=== PATIENT | female | born 1970 | race African-American/Black ===

== ENCOUNTER 2020-09-04 01:06 | Inpatient (IN) | payer OTHER, MEDICAID ==
[~2020-09-04] VITALS: Ht 165.1 cm; Wt 94.8 kg
[2020-09-04] MEDS ORDERED: NITROGLYCERIN 0.4MG TABLET SL SL ONE (01:15)
[2020-09-04] MEDS ORDERED: FUROSEMIDE 100MG/10ML VIAL IVP ONE (01:15)
[2020-09-04] MEDS ORDERED: MORPHINE SULFATE 4 MG/ML CPJ (NOT FOR IM USE) IV ONE (01:15)
[2020-09-04] MEDS ORDERED: NITROGLYCERIN 50MG PREMIX 250 ML IV ONE (01:15)
[2020-09-04 01:39] LABS: BASOPHILS % 0.4 % (0.0-2.0); EOSINOPHILS % 1.5 % (0.0-5.0); HEMATOCRIT. 39.9 % (36.0-48.0); HEMOGLOBIN. 13.2 g/dL (12.0-16.0); LYMPHOCYTES % 47.5 % (20.0-50.0); MEAN CORPUSCULAR HEMOGLOBIN 29.5 pg (28.0-32.0); MEAN CORPUSCULAR VOLUME 89.1 fL (81.0-99.0); MONOCYTES % 7.8 % (2.0-8.0); NEUTROPHILS % 42.8 % (40.0-76.0); PLATELET 262 x1000/uL (130-400); RED BLOOD CELL COUNT 4.48 mill/uL (4.2-5.4)
[2020-09-04] MEDS ORDERED: AZITHROMYCIN 500 MG in DEXT 5% WATER 250 ML IV ONE (01:45)
[2020-09-04] MEDS ORDERED: PIPERACILLIN/TAZ 3.375G PREMIX 50 ML IV ONE (01:45)
[2020-09-04] MEDS ORDERED: VANCOMYCIN 1 G PREMIX 200 ML IV ONE (01:45)
[2020-09-04 01:49] LABS: CHLORIDE 103 mEq/L (98-107)
[2020-09-04] MEDS ORDERED: POTASSIUM CHLORIDE INJ 40 MEQ in DEXT 5% WATER 250 ML IV ONE (03:30)
[2020-09-04] MEDS ORDERED: ONDANSETRON HCL 4MG/2ML INJ IV PRN (08:30)
[2020-09-04] MEDS ORDERED: ACETAMINOPHEN 325MG TABLET PO PRN (08:30)
[2020-09-04] MEDS: FUROSEMIDE 40MG/4ML VIAL IVP SCH ×2 (10:00→17:20)
[2020-09-04] MEDS: LOSARTAN POTASSIUM 100 MG TABLET PO SCH (10:00)
[2020-09-04] MEDS: CARVEDILOL 6.25 MG TABLET PO SCH (10:01)
[2020-09-04] MEDS ORDERED: POTASSIUM CHLORIDE 20MEQ TABLET SR PO NR (10:45)
[2020-09-04] MEDS: ENOXAPARIN 30MG/0.3ML SYR SUBCUT SCH (11:45)
[2020-09-04 22:00] VITALS: BP_SYST 142; BP_SYST 152; BP_SYST 161; BP_DIAS 101; BP_DIAS 83; BP_DIAS 96
[2020-09-05] VITALS (7 sets, daily range): BP systolic 102–150; BP diastolic 70–98
[2020-09-05] MEDS ORDERED: CARV25TA47 MT (00:57)
[2020-09-05] MEDS ORDERED: AMLO10TA80 MT (00:58)
[2020-09-05] MEDS ORDERED: LISI10TA26 MT (00:59)
[2020-09-05] MEDS ORDERED: CHLO25TA2 MT (01:00)
[2020-09-05 06:31] LABS: BASOPHILS % 0.2 % (0.0-2.0); EOSINOPHILS % 0.8 % (0.0-5.0); HEMATOCRIT. 37.4 % (36.0-48.0); HEMOGLOBIN. 12.3 g/dL (12.0-16.0); LYMPHOCYTES % 24.1 % (20.0-50.0); MEAN CORPUSCULAR HEMOGLOBIN 29.6 pg (28.0-32.0); MEAN CORPUSCULAR VOLUME 89.9 fL (81.0-99.0); MEAN PLATELET VOLUME 11.4 fl (7.4-10.4); MONOCYTES % 10.2 % (2.0-8.0); NEUTROPHILS % 64.7 % (40.0-76.0); PLATELET 221 x1000/uL (130-400); RED BLOOD CELL COUNT 4.16 mill/uL (4.2-5.4); RED CELL DISTRIBUTION WIDTH 14.3 % (11.6-14.6)
[2020-09-05 07:38] LABS: CHLORIDE 103 mEq/L (98-107)
[2020-09-05] MEDS: FUROSEMIDE 40MG/4ML VIAL IVP SCH ×2 (09:00→18:10)
[2020-09-05] MEDS: CARVEDILOL 6.25 MG TABLET PO SCH ×2 (09:30→20:52)
[2020-09-05] MEDS: LOSARTAN POTASSIUM 100 MG TABLET PO SCH (09:30)
[2020-09-05] MEDS: ENOXAPARIN 30MG/0.3ML SYR SUBCUT SCH ×2 (09:31→20:52)
[2020-09-05] MEDS ORDERED: POTASSIUM CHLORIDE 20MEQ TABLET SR PO SCH (13:15)
[2020-09-05 14:03] LABS: T4 FREE 0.92 ng/dL (0.76-1.46)
[2020-09-05 19:11] LABS: CLARITY URINE CLEAR (CLEAR); COLOR URINE YELLOW (YELLOW); KETONES URINE NEGATIVE (NEGATIVE); LEUKOCYTE ESTERASE URINE NEGATIVE (NEGATIVE); NITRITE URINE NEGATIVE (NEGATIVE); OCCULT BLOOD URINE NEGATIVE (NEGATIVE); PH URINE 5.5 (4.5-8.0); PROTEIN URINE NEGATIVE (NEGATIVE); SPECIFIC GRAVITY URINE 1.012 (1.005-1.030); UROBILINOGEN URINE 0.2 E.U./dL (0.2-1.0)
== END 2020-09-05 21:05 | disposition short-term general hospital (02) | DRG 189 ==
LOC: ER 01:06 → 6WST 01:44 → CANRESERV 08:07 → ENRESERV 08:07 → EDBEDREQSVC 09:06 → ENRESERV 20:11
PROVIDERS: ADMIT Internal Medicine; ATTEND Internal Medicine
PROC: 5A09357 Assistance with Respiratory Ventilation, Less than 24 Consecutive Hours, Continuous Positive Airway Pressure (ICD-10-PCS; principal; 2020-09-04)
DX: J96.00 Acute respiratory failure, unspecified whether with hypoxia or hypercapnia (principal); E66.9 Obesity, unspecified; I50.9 Heart failure, unspecified; I16.0 Hypertensive urgency; I11.0 Hypertensive heart disease with heart failure; J45.909 Unspecified asthma, uncomplicated; Z20.822 Contact with and (suspected) exposure to COVID-19; E87.6 Hypokalemia; E78.5 Hyperlipidemia, unspecified; I25.2 Old myocardial infarction; Z68.34 Body mass index [BMI] 34.0-34.9, adult; Z88.0 Allergy status to penicillin; Z71.3 Dietary counseling and surveillance; Z79.899 Other long term (current) drug therapy
CPT/HCPCS: 36415; 71045; 80048; 80053; 80061; 81003; 83036; 83605; 83735; 83880; 84132; 84439; 84443; 84484; 85025; 85379; 87426; 93005; 93306; 93970; 99291; J0456; J1650; J1940; J2270; J2405; J2543; J3480; J3490; J7060

== ENCOUNTER 2021-10-26 00:42 | Emergency (ER) | payer BC, MEDICAID ==
[~2021-10-26] VITALS: Ht 170.2 cm; Wt 77.0 kg
[~2021-10-26 00:42] MED LIST: AMLO10TA80 MT; CARV25TA47 MT; CHLO25TA2 MT; LISI10TA26 PO
[2021-10-26 01:26] LABS: HEMATOCRIT 32.9 % (36.0-48.0); HEMOGLOBIN 10.7 g/dL (12.0-16.0); MEAN CORPUSCULAR HEMOGLOBIN 28.6 pg (28.0-32.0); MEAN CORPUSCULAR VOLUME 87.9 fL (81.0-99.0); PLATELET 249 x1000/uL (130-400); RED BLOOD CELL COUNT 3.74 mill/uL (4.2-5.4); RED CELL DISTRIBUTION WIDTH 13.3 % (11.6-14.6)
[2021-10-26] MEDS ORDERED: TRANEXAMIC ACID 1,000 MG/10 ML IV ONE (01:30)
[2021-10-26 01:33] LABS: CHLORIDE 104 mEq/L (98-107)
[2021-10-26 03:00] VITALS: BP 118/74
[2021-11-15] MEDS ORDERED: FERR325T6 MT (10:12)
[2021-11-15] MEDS ORDERED: SENN-257 MT (10:12)
== END 2021-10-26 04:37 | disposition home or self-care (01) ==
LOC: ER 00:42
DX: R04.0 Epistaxis (principal); R53.1 Weakness; R03.0 Elevated blood-pressure reading, without diagnosis of hypertension; I50.9 Heart failure, unspecified
CPT/HCPCS: 30901; 36415; 80053; 85027; 86850; 86900; 99283; 99284

== ENCOUNTER 2021-10-28 08:15 | Emergency (ER) | payer BC, MEDICAID ==
[~2021-10-28] VITALS: Ht 160 cm; Wt 78.0 kg
[~2021-10-28 08:15] MED LIST changes: +LISI10TA26 MT; -LISI10TA26 PO
[2021-10-28 13:23] LABS: BASOPHILS % 0.4 % (0.0-2.0); HEMATOCRIT. 28.4 % (36.0-48.0); HEMOGLOBIN. 9.5 g/dL (12.0-16.0); LYMPHOCYTES % 13.7 % (20.0-50.0); MEAN CORPUSCULAR HEMOGLOBIN 29.1 pg (28.0-32.0); MEAN CORPUSCULAR VOLUME 87.3 fL (81.0-99.0); MEAN PLATELET VOLUME 10.3 fl (7.4-10.4); MONOCYTES % 9.5 % (2.0-8.0); NEUTROPHILS % 76.4 % (40.0-76.0); PLATELET 237 x1000/uL (130-400); RED BLOOD CELL COUNT 3.26 mill/uL (4.2-5.4); RED CELL DISTRIBUTION WIDTH 13.4 % (11.6-14.6)
[2021-10-28 13:31] LABS: CHLORIDE 101 mEq/L (98-107)
[2021-10-28 13:34] LABS: INR 1.1; PARTIAL THROMBOPLASTIN TIME 27.6 sec (23.4-31.0); PROTHROMBIN TIME 11.3 sec (9.6-11.0)
[2021-10-28] MEDS: CLINDAMYCIN HCL 150MG CAPSULE PO NR ×3 (17:00→22:11)
[2021-10-28] MEDS: CLINDAMYCIN HCL 150MG CAPSULE PO SCH ×2 (21:45→22:11)
[2021-10-28] MEDS ORDERED: ONDANSETRON 4MG ODT PO ONE (22:45)
[2021-10-28] MEDS ORDERED: SODIUM CHLORIDE 0.9% 1,000 ML IV ONE (23:45)
[2021-10-29] MEDS ORDERED: CLIN-194 MT (01:41)
[2021-10-29 04:35] VITALS: BP 131/89
[2021-10-29] MEDS ORDERED: CLINDAMYCIN HCL 150MG CAPSULE PO SCH (06:00)
[2021-10-29] MEDS ORDERED: IOHEXOL-300 100 ML BOTTLE ONE (06:42)
== END 2021-10-29 05:19 | disposition home or self-care (01) ==
LOC: ER 08:15
DX: R53.1 Weakness (principal); I11.0 Hypertensive heart disease with heart failure; I50.9 Heart failure, unspecified; J45.909 Unspecified asthma, uncomplicated; I25.2 Old myocardial infarction; Z88.0 Allergy status to penicillin; Z20.822 Contact with and (suspected) exposure to COVID-19
CPT/HCPCS: 36415; 70487; 71045; 80053; 83880; 84484; 85025; 85610; 85730; 87426; 93005; 96360; 96361; 99285; J7030; Q0162; Q9967

== ENCOUNTER 2021-11-09 16:32 | Inpatient (IN) | payer BC, MEDICAID ==
[~2021-11-09] VITALS: Ht 157.5 cm; Wt 91.6 kg
[~2021-11-09 16:32] MED LIST changes: +CLIN-194 MT; -LISI10TA26 MT; +LISI10TA26 PO
[2021-11-09] MEDS ORDERED: VISCOUS LIDOCAINE 2% 15 ML UDC MM STA (17:42)
[2021-11-09] MEDS: OXYMETAZOLINE HCL NASAL SPRAY 15ML BOTHNSTRLS SCH ×2 (18:33→21:00)
[2021-11-09] MEDS ORDERED: CLINDAMYCIN HCL 150MG CAPSULE PO STA (19:13)
[2021-11-09] MEDS ORDERED: ONDANSETRON HCL 4MG/2ML INJ IV ONE (19:15)
[2021-11-09] MEDS ORDERED: SODIUM CHLORIDE 0.9% 1,000 ML IV ONE ×2 (19:15→20:00)
[2021-11-09 19:18] LABS: BASOPHILS % 0.5 % (0.0-2.0); EOSINOPHILS % 0.2 % (0.0-5.0); HEMATOCRIT. 26.3 % (36.0-48.0); HEMOGLOBIN. 8.6 g/dL (12.0-16.0); LYMPHOCYTES % 31.6 % (20.0-50.0); MEAN CORPUSCULAR HEMOGLOBIN 28.6 pg (28.0-32.0); MEAN CORPUSCULAR VOLUME 87.2 fL (81.0-99.0); MEAN PLATELET VOLUME 9.6 fl (7.4-10.4); MONOCYTES % 7.9 % (2.0-8.0); NEUTROPHILS % 59.8 % (40.0-76.0); PLATELET 326 x1000/uL (130-400); RED BLOOD CELL COUNT 3.01 mill/uL (4.2-5.4)
[2021-11-09 19:26] LABS: CHLORIDE 103 mEq/L (98-107)
[2021-11-09 19:27] LABS: PARTIAL THROMBOPLASTIN TIME 29.1 sec (23.4-31.0); PROTHROMBIN TIME 10.8 sec (9.6-11.0)
[2021-11-09] MEDS ORDERED: MORPHINE SULFATE 4 MG/ML CPJ (NOT FOR IM USE) IV STA (19:53)
[2021-11-09] MEDS ORDERED: ONDANSETRON HCL 4MG/2ML INJ IV STA (19:53)
[2021-11-09] MEDS ORDERED: POTASSIUM CHLORIDE 20MEQ TABLET SR PO ONE (20:00)
[2021-11-09] MEDS ORDERED: OXYMETAZOLINE HCL NASAL SPRAY 15ML BOTHNSTRLS SCH (21:00)
[2021-11-09] MEDS ORDERED: NITROGLYCERIN 0.4MG TABLET SL SL PRN (22:30)
[2021-11-09] MEDS ORDERED: CLONIDINE 0.1MG TABLET PO PRN (22:30)
[2021-11-09] MEDS ORDERED: NA PHOS,M-B/NA PHOS,DI-BA ENEMA 118ML PR PRN (22:30)
[2021-11-09] MEDS ORDERED: GUAIFENESIN 200MG/10ML SUGAR FREE UDC PO PRN (22:30)
[2021-11-09] MEDS ORDERED: ACETAMINOPHEN 325MG TABLET PO PRN (22:30)
[2021-11-09] MEDS ORDERED: KETOROLAC 15MG/ML VIAL IV PRN (22:30)
[2021-11-09] MEDS ORDERED: MAGNESIUM/ALUMINUM HYDROXIDE/SIMETHICONE 30ML UDC PO PRN (22:30)
[2021-11-09] MEDS ORDERED: DOCUSATE SODIUM 100MG CAPSULE PO PRN (22:30)
[2021-11-09] MEDS ORDERED: IPRATROPIUM/ALBUTEROL 0.5-3(2.5)MG/3ML NEB NEB PRN (22:30)
[2021-11-09] MEDS ORDERED: ZOLPIDEM TARTRATE 5MG TABLET PO PRN (22:30)
[2021-11-09] MEDS: ENOXAPARIN 40MG/0.4ML SYR SUBCUT SCH (23:30)
[2021-11-09 23:44] LABS: ETHANOL BLOOD < 10 mg/dL; HDL CHOLESTEROL 40 mg/dL (40-59); LDL CHOLESTEROL 94 mg/dL (5-100); T4 FREE 1.07 ng/dL (0.76-1.46); TOTAL IRON BINDING CAPACITY 341 ug/dL (250-450)
[2021-11-09 23:45] VITALS: BP 116/74
[2021-11-09 23:57] LABS: FOLIC ACID (FOLATE) SERUM 18.1 ng/mL (>5.38)
[2021-11-10] MEDS ORDERED: SITA50TA3 PO (00:32)
[2021-11-10] MEDS ORDERED: METO-539 PO (00:32)
[2021-11-10] MEDS: CARVEDILOL 3.125 MG TABLET PO SCH ×2 (05:14→18:55)
[2021-11-10 06:45] LABS: BASOPHILS % 0.1 % (0.0-2.0); EOSINOPHILS % 0.1 % (0.0-5.0); HEMATOCRIT. 21.9 % (36.0-48.0); HEMOGLOBIN. 7.1 g/dL (12.0-16.0); MEAN CORPUSCULAR HEMOGLOBIN 28.3 pg (28.0-32.0); MEAN CORPUSCULAR VOLUME 87.5 fL (81.0-99.0); MEAN PLATELET VOLUME 9.9 fl (7.4-10.4); MONOCYTES % 7.1 % (2.0-8.0); NEUTROPHILS % 73.7 % (40.0-76.0); PLATELET 264 x1000/uL (130-400); RED BLOOD CELL COUNT 2.51 mill/uL (4.2-5.4); RED CELL DISTRIBUTION WIDTH 14.4 % (11.6-14.6)
[2021-11-10 07:08] LABS: CHLORIDE 107 mEq/L (98-107)
[2021-11-10 07:30] LABS: PHOSPHORUS 2.6 mg/dL (2.5-4.9)
[2021-11-10 08:00] VITALS: BP 109/63
[2021-11-10 08:05] LABS: CREATINE KINASE 38 IU/L (26-192); CREATINE KINASE MB FRACTION < 1.0 ng/mL (0.5-3.6)
[2021-11-10] MEDS: FAMOTIDINE 20MG TABLET PO SCH ×2 (08:47→20:39)
[2021-11-10] MEDS: LISINOPRIL 20MG TABLET PO SCH ×2 (08:49→20:40)
[2021-11-10] MEDS ORDERED: ASPIRIN 81MG EC TABLET PO SCH (09:00)
[2021-11-10 10:38] VITALS: BP 117/70
[2021-11-10 11:02] VITALS: BP 121/77
[2021-11-10 12:00] VITALS: BP_SYST 121; BP_SYST 126; BP_DIAS 76; BP_DIAS 77
[2021-11-10] MEDS ORDERED: POTASSIUM CHLORIDE 20MEQ TABLET SR PO NR (12:00)
[2021-11-10] MEDS ORDERED: CEFAZOLIN 1000MG PREMIX 50 ML IV SCH (14:00)
[2021-11-10 16:00] VITALS: BP 154/85
[2021-11-10] MEDS: CLINDAMYCIN 300 MG in DEXTROSE 5% WATER 50 ML IV SCH (16:08)
[2021-11-10 17:39] LABS: CREATINE KINASE 46 IU/L (26-192); CREATINE KINASE MB FRACTION < 1.0 ng/mL (0.5-3.6)
[2021-11-10 20:00] VITALS: BP 142/87
[2021-11-10] MEDS: ENOXAPARIN 40MG/0.4ML SYR SUBCUT SCH (20:39)
[2021-11-10] MEDS: ACETAMINOPHEN 325MG TABLET PO PRN (20:42)
[2021-11-10] MEDS: ONDANSETRON HCL 4MG/2ML INJ IV PRN (20:50)
[2021-11-11] VITALS: BP 110/66
[2021-11-11] MEDS: CLINDAMYCIN 300 MG in DEXTROSE 5% WATER 50 ML IV SCH ×4 (00:33→23:52)
[2021-11-11 04:00] VITALS: BP 141/81
[2021-11-11] MEDS: CARVEDILOL 3.125 MG TABLET PO SCH ×2 (05:25→18:37)
[2021-11-11 07:31] LABS: BASOPHILS % 0.2 % (0.0-2.0); EOSINOPHILS % 0.1 % (0.0-5.0); HEMATOCRIT. 25.2 % (36.0-48.0); HEMOGLOBIN. 8.4 g/dL (12.0-16.0); LYMPHOCYTES % 25.1 % (20.0-50.0); MEAN CORPUSCULAR HEMOGLOBIN 28.8 pg (28.0-32.0); MEAN CORPUSCULAR VOLUME 86.1 fL (81.0-99.0); MEAN PLATELET VOLUME 9.9 fl (7.4-10.4); MONOCYTES % 9.4 % (2.0-8.0); NEUTROPHILS % 65.2 % (40.0-76.0); PLATELET 240 x1000/uL (130-400); RED BLOOD CELL COUNT 2.93 mill/uL (4.2-5.4); RED CELL DISTRIBUTION WIDTH 14.1 % (11.6-14.6)
[2021-11-11 07:44] LABS: CHLORIDE 105 mEq/L (98-107)
[2021-11-11 07:56] LABS: PHOSPHORUS 2.5 mg/dL (2.5-4.9)
[2021-11-11 08:00] VITALS: BP 127/85
[2021-11-11] MEDS: LISINOPRIL 20MG TABLET PO SCH ×2 (09:33→20:54)
[2021-11-11] MEDS: FAMOTIDINE 20MG TABLET PO SCH ×2 (09:33→20:53)
[2021-11-11 12:00] VITALS: BP 142/88
[2021-11-11 16:00] VITALS: BP 138/86
[2021-11-11 20:00] VITALS: BP 143/88
[2021-11-12] VITALS: BP 119/76
[2021-11-12 04:00] VITALS: BP 126/79
[2021-11-12] MEDS: CARVEDILOL 3.125 MG TABLET PO SCH (06:35)
[2021-11-12 08:00] VITALS: BP 124/75
[2021-11-12] MEDS: FAMOTIDINE 20MG TABLET PO SCH ×2 (08:44→20:59)
[2021-11-12] MEDS: LISINOPRIL 20MG TABLET PO SCH ×2 (08:44→21:00)
[2021-11-12] MEDS: AMLODIPINE 5MG TABLET PO SCH (08:44)
[2021-11-12] MEDS: CLINDAMYCIN 300 MG in DEXTROSE 5% WATER 50 ML IV SCH (08:45)
[2021-11-12 12:00] VITALS: BP 118/69
[2021-11-12] MEDS: CLINDAMYCIN IV SCH ×2 (15:19)
[2021-11-12] MEDS: [UNRECOGNIZED DRUG - OTHER] IV SCH ×2 (15:19)
[2021-11-12 15:54] VITALS: BP 118/68
[2021-11-12 15:58] LABS: BASOPHILS % 0.1 % (0.0-2.0); EOSINOPHILS % 0.2 % (0.0-5.0); HEMATOCRIT. 24.3 % (36.0-48.0); HEMOGLOBIN. 8.1 g/dL (12.0-16.0); MEAN CORPUSCULAR HEMOGLOBIN 28.8 pg (28.0-32.0); MEAN CORPUSCULAR VOLUME 86.9 fL (81.0-99.0); MEAN PLATELET VOLUME 9.8 fl (7.4-10.4); NEUTROPHILS % 65.7 % (40.0-76.0); PLATELET 224 x1000/uL (130-400); RED CELL DISTRIBUTION WIDTH 14.1 % (11.6-14.6)
[2021-11-12 16:06] LABS: CHLORIDE 103 mEq/L (98-107)
[2021-11-12] MEDS: CARVEDILOL 6.25 MG TABLET PO SCH (18:00)
[2021-11-12 20:00] VITALS: BP 120/64
[2021-11-13] VITALS: BP 135/60
[2021-11-13] MEDS: CLINDAMYCIN IV SCH ×4 (00:58→09:08)
[2021-11-13] MEDS: [UNRECOGNIZED DRUG - OTHER] IV SCH ×4 (00:58→09:08)
[2021-11-13 04:00] VITALS: BP 120/69
[2021-11-13] MEDS: CARVEDILOL 6.25 MG TABLET PO SCH ×2 (06:20→17:01)
[2021-11-13 08:00] VITALS: BP 107/67
[2021-11-13] MEDS: AMLODIPINE 5MG TABLET PO SCH (09:00)
[2021-11-13] MEDS: LISINOPRIL 20MG TABLET PO SCH ×2 (09:00→21:00)
[2021-11-13] MEDS: FAMOTIDINE 20MG TABLET PO SCH ×2 (09:08→23:06)
[2021-11-13 12:00] VITALS: BP 122/69
[2021-11-13] MEDS: OXYMETAZOLINE HCL NASAL SPRAY 15ML BOTHNSTRLS SCH ×2 (12:00→23:07)
[2021-11-13] MEDS: CLINDAMYCIN HCL 150MG CAPSULE PO SCH ×2 (14:27→23:06)
[2021-11-13 15:17] LABS: HEMATOCRIT 24.2 % (36.0-48.0); MEAN CORPUSCULAR HEMOGLOBIN 28.6 pg (28.0-32.0); PLATELET 267 x1000/uL (130-400); RED BLOOD CELL COUNT 2.79 mill/uL (4.2-5.4); RED CELL DISTRIBUTION WIDTH 13.6 % (11.6-14.6)
[2021-11-13 16:00] VITALS: BP 119/73
[2021-11-13 20:00] VITALS: BP 111/70
[2021-11-13] MEDS: ACETAMINOPHEN 325MG TABLET PO PRN (23:20)
[2021-11-14] VITALS: BP 102/68
[2021-11-14] MEDS: CARVEDILOL 6.25 MG TABLET PO SCH ×2 (05:27→18:00)
[2021-11-14] MEDS: CLINDAMYCIN HCL 150MG CAPSULE PO SCH ×3 (05:28→21:56)
[2021-11-14 05:29] VITALS: BP 101/62
[2021-11-14 07:01] LABS: BASOPHILS % 0.2 % (0.0-2.0); EOSINOPHILS % 0.1 % (0.0-5.0); HEMATOCRIT. 24.9 % (36.0-48.0); HEMOGLOBIN. 8.3 g/dL (12.0-16.0); LYMPHOCYTES % 35.2 % (20.0-50.0); MEAN CORPUSCULAR HEMOGLOBIN 28.7 pg (28.0-32.0); MEAN CORPUSCULAR VOLUME 86.3 fL (81.0-99.0); MEAN PLATELET VOLUME 9.9 fl (7.4-10.4); MONOCYTES % 11.6 % (2.0-8.0); NEUTROPHILS % 52.9 % (40.0-76.0); PLATELET 292 x1000/uL (130-400); RED BLOOD CELL COUNT 2.88 mill/uL (4.2-5.4)
[2021-11-14 07:08] LABS: CHLORIDE 103 mEq/L (98-107)
[2021-11-14 07:17] LABS: PHOSPHORUS 3.3 mg/dL (2.5-4.9)
[2021-11-14 08:30] VITALS: BP 126/81
[2021-11-14] MEDS: FAMOTIDINE 20MG TABLET PO SCH ×2 (08:47→21:55)
[2021-11-14] MEDS: LISINOPRIL 20MG TABLET PO SCH ×2 (08:47→21:56)
[2021-11-14] MEDS: AMLODIPINE 5MG TABLET PO SCH (08:47)
[2021-11-14] MEDS: OXYMETAZOLINE HCL NASAL SPRAY 15ML BOTHNSTRLS SCH ×2 (08:47→21:56)
[2021-11-14] MEDS ORDERED: IRON SUCROSE COMPLEX 100 MG/5 ML ML IV SCH (10:45)
[2021-11-14 11:45] VITALS: BP 138/87
[2021-11-14] MEDS ORDERED: POTASSIUM CHLORIDE 20MEQ/PACKET PO NR (14:45)
[2021-11-14 16:00] VITALS: BP 115/76
[2021-11-14 20:00] VITALS: BP 113/74
[2021-11-15 00:01] VITALS: BP 118/74
[2021-11-15 04:00] VITALS: BP 112/73
[2021-11-15] MEDS: CARVEDILOL 6.25 MG TABLET PO SCH (05:42)
[2021-11-15] MEDS: CLINDAMYCIN HCL 150MG CAPSULE PO SCH ×2 (05:43→13:40)
[2021-11-15 06:49] LABS: BASOPHILS % 0.4 % (0.0-2.0); EOSINOPHILS % 0.5 % (0.0-5.0); HEMATOCRIT. 25.3 % (36.0-48.0); HEMOGLOBIN. 8.4 g/dL (12.0-16.0); LYMPHOCYTES % 35.5 % (20.0-50.0); MEAN CORPUSCULAR HEMOGLOBIN 28.6 pg (28.0-32.0); MEAN CORPUSCULAR VOLUME 86.3 fL (81.0-99.0); MEAN PLATELET VOLUME 10.1 fl (7.4-10.4); NEUTROPHILS % 52.6 % (40.0-76.0); PLATELET 368 x1000/uL (130-400); RED BLOOD CELL COUNT 2.93 mill/uL (4.2-5.4); RED CELL DISTRIBUTION WIDTH 14.1 % (11.6-14.6)
[2021-11-15 06:58] LABS: CHLORIDE 105 mEq/L (98-107)
[2021-11-15 08:00] VITALS: BP 110/77
[2021-11-15] MEDS: AMLODIPINE 5MG TABLET PO SCH (08:30)
[2021-11-15] MEDS: LISINOPRIL 20MG TABLET PO SCH (08:31)
[2021-11-15] MEDS: OXYMETAZOLINE HCL NASAL SPRAY 15ML BOTHNSTRLS SCH (09:08)
[2021-11-15] MEDS: FAMOTIDINE 20MG TABLET PO SCH (09:08)
[2021-11-15] MEDS: ONDANSETRON HCL 4MG/2ML INJ IV PRN (09:15)
[2021-11-15] MEDS ORDERED: FERR325T6 MT (10:12)
[2021-11-15] MEDS ORDERED: SENN-257 MT (10:12)
[2021-11-15] MEDS ORDERED: IRON SUCROSE COMPLEX 100 MG/5 ML ML IV SCH (11:00)
[2021-11-15] MEDS ORDERED: SODIUM CHLORIDE 0.9% 250 ML IV ONE (11:00)
[2021-11-15 12:30] VITALS: BP 119/83
[2021-11-15 14:13] VITALS: BP 119/83
[2021-11-15 15:30] VITALS: BP 118/82
== END 2021-11-15 16:00 | disposition home or self-care (01) | DRG 811 ==
LOC: ER 16:32 → 8WST 21:44 → ENRESERV 22:18 → SUPCPDRO 22:37
PROVIDERS: ADMIT Internal Medicine; ATTEND Internal Medicine
PROC: 30233N1 Transfusion of Nonautologous Red Blood Cells into Peripheral Vein, Percutaneous Approach (ICD-10-PCS; principal; 2021-11-10)
DX: D62 Acute posthemorrhagic anemia (principal); I21.4 Non-ST elevation (NSTEMI) myocardial infarction; E44.1 Mild protein-calorie malnutrition; I13.0 Hypertensive heart and chronic kidney disease with heart failure and stage 1 through stage 4 chronic kidney disease, or unspecified chronic kidney disease; I42.9 Cardiomyopathy, unspecified; R04.0 Epistaxis; E11.22 Type 2 diabetes mellitus with diabetic chronic kidney disease; I16.0 Hypertensive urgency; I50.9 Heart failure, unspecified; E87.6 Hypokalemia; N18.9 Chronic kidney disease, unspecified; I25.10 Atherosclerotic heart disease of native coronary artery without angina pectoris; J45.909 Unspecified asthma, uncomplicated; Z79.899 Other long term (current) drug therapy; Z88.0 Allergy status to penicillin; Z68.36 Body mass index [BMI] 36.0-36.9, adult
CPT/HCPCS: 36415; 71045; 80048; 80053; 80061; 80320; 82550; 82553; 82607; 82746; 82962; 83036; 83540; 83550; 83735; 83880; 84100; 84439; 84443; 84484; 85025; 85027; 86850; 86900; 86920; 93005; 93306; 93970; 99285; J1650; J2270; J2405; J3490; J7030; J7060; P9016; G0480